=== PATIENT | female | born 1990 | race Caucasian/White ===

== ENCOUNTER 2016-08-11 11:37 | Emergency (ER) | payer OTHER ==
[2016-08-11 11:44] VITALS: BP 111/79; BMI 34.9
[2016-08-11] MEDS ORDERED: NS 1000 ML 1,000 ML IV ONE (12:07)
--- NOTE | 2016-08-11 12:09 | DR.GENAD ---
HPI - PCP Primary Care Physician: isabel - HPI Comment HPI Comment: PATIENT HAVE LOW BACK PAIN. NO DYSURIA. HAVING N/V/D FOR 2 DAYS. NO VAGINAL BLEEDING. HAVE NAUSEA MED SHE TAKES. DID NOT VOMIT TODAY BUT NAUSEATED. DIARRHEA IMPROVED. - Complaint/Symptoms Chief Complaint Doctors Comments: LOW BACK PAIN, N/V.D FOR 2 DAYS. PATIENT IS 25 WEEKS . Chief Complaint:: lower back pain,cramping, pt 25 weeks - Nurses notes reviewed Nurses Notes Review: Yes - Source History Provided: Patient - Mode of Arrival Mode of Arrival: Ambulatory - Timing Onset of Chief Complaint: 08/09/16 Came on: Suddenly - Duration Duration: Intermittent Duration: Days - Severity Severity: Moderate PMH - PMH Past Medical History: Yes Past Medical History: Anxiety Past Medical History Comment: bipolar, insomnia Past Surgical History: Yes Surgical History: Tonsillectomy - Family History History of Family Medical Conditions: No Family Medical History: Diabetes Mellitus, Cancer, Hypertension - Social History Alcohol Use: None Do you use any recreational Drugs:: No Lives With: Spouse Lives Where: Home - infectious screening Have you traveled outside the country in the last 6 months?: No Isolation: Standard ROS - Review of Systems Constitutional: No Symptoms Reported Eyes: No Symptoms Reported ENTM: No Symptoms Reported Respiratoy: No Symptoms Reported Cardiovascular: No Symptoms Reported Gastrointestinal/Abdominal: Abdominal Pain, Nausea, Vomiting Genitourinary: No Symptoms Reported. negative: Dysuria, Frequency, Hematuria Neurological: No Symptoms Reported Musculoskeletal: Back Pain Integumentary: Dryness Hematologic/Lymphatic: No Symptoms Reported Endocrine: No Symptoms Reported. negative: Flushing, Increased Thirst, Increased Urine All Other Systems: Reviewed and Negative PE - Vital Signs Vitals: Temperature 98.2 F Pulse Rate 88 Respiratory Rate 20 Blood Pressure 111/79 O2 Sat by Pulse Oximetry 99 - General Limitations: No Limitations General Appearance: Alert - Head Head Exam: Normal Inspection - Eyes Eye exam: Normal Appearance - ENT ENT Exam: Normal External Ear Exam External Ear Exam: Normal External Inspection TM/Canal Exam: Bilateral Normal Nose Exam: Normal Nose Exam Mouth Exam: Normal Inspection Throat Exam: Normal Inspection - Neck Neck Exam: Trachea Midline - Chest Chest Inspection: Symmetric Chest Wall Rise - Respiratory Respiratory Exam: Normal Lung Sounds Bilat Respiratory Exam: Bilateral Clear to Auscultation - Cardiovascular Cardiovascular Exam: Regular Rate, Normal Rhythm, Normal Heart Sounds - Abdominal Exam Abdominal Exam: Soft, Tenderness - Extremities Extremities Exam: Normal Inspection. negative: Edema - Back Back Exam: Normal Inspection - Neurologic Neurological Exam: Alert, Oriented X3, CN II-XII Intact - Psychiatric Psychiatric Exam: Anxious - Skin Skin Exam: Dry MDM - Differential Diagnosis Differential Diagnosis: GASTROENTERITIS, UTI, ABDOMINAL PAIN DURING , HYPEREMESIS, BACK PA Course - Treatment Treatment: SEE ORDERS. - Education/Counseling Education/Counseling: Patient, Education Educated On: Treatment, Diagnosis, Needs for Follow Up ROR - Labs Reviewed Laboratory Results Reviewed?: Yes Result Diagrams: 08/11/16 12:12 08/11/16 12:12 Laboratory: WBC 9.4 X10^3/uL (3.6-10.0) 08/11/16 12:12 RBC 4.15 X10^6/uL (3.5-5.4) 08/11/16 12:12 Hgb 11.8 g/dL (12.0-16.0) L 08/11/16 12:12 Hct 34.4 % (36.0-47.0) L 08/11/16 12:12 MCV 82.9 fL (80.0-100.0) 08/11/16 12:12 MCH 28.4 pg (27.0-34.0) 08/11/16 12:12 MCHC 34.2 g/dL (33.0-35.0) 08/11/16 12:12 RDW 12.6 % (11.6-16.5) 08/11/16 12:12 Plt Count 201 X10^3/uL (150.0-450.0) 08/11/16 12:12 MPV 8.8 fL (7.4-11.0) 08/11/16 12:12 Neut % 76.1 % (42.0-75.0) H 08/11/16 12:12 Lymph % 16.7 % (21.0-51.0) L 08/11/16 12:12 [place] % 6.3 % (0.0-13.0) 08/11/16 12:12 Eos % 0.5 % (0.9-2.9) L 08/11/16 12:12 Baso % 0.4 % (0.2-1.0) 08/11/16 12:12 Neut # 7.2 x10^3/uL (2.2-4.8) H 08/11/16 12:12 Lymph # 1.6 X10^3/uL (1.3-2.9) 08/11/16 12:12 [place] # 0.6 x10^3/uL (0.3-0.8) 08/11/16 12:12 Eos # 0.0 x10^3/uL (0.0-0.2) 08/11/16 12:12 Baso # 0.0 X10^3/uL (0.0-0.1) 08/11/16 12:12 Absolute Nucleated RBC 0.0 /100WBC 08/11/16 12:12 Sodium 140 mmol/L (136-145) 08/11/16 12:12 Corrected Sodium TNP 08/11/16 12:12 Potassium 3.6 mmol/L (3.5-5.1) 08/11/16 12:12 Chloride 105 mmol/L (98-107) 08/11/16 12:12 Carbon Dioxide 24.8 mmol/L (21-32) 08/11/16 12:12 BUN 6 mg/dL (7-18) L 08/11/16 12:12 Creatinine 0.46 mg/dL (0.55-1.02) L 08/11/16 12:12 Est GFR (MDRD) Af Amer > 60 (>60) 08/11/16 12:12 Est GFR (MDRD) Non-Af > 60 (>60) 08/11/16 12:12 Glucose 108 mg/dL (65-99) H 08/11/16 12:12 Calcium 8.4 mg/dL (8.5-10.1) L 08/11/16 12:12 Corrected Calcium 9.4 mg/dL (8.5-10.1) 08/11/16 12:12 Total Bilirubin 0.40 mg/dL (0.2-1.0) 08/11/16 12:12 AST 11 Units/L (15-37) L 08/11/16 12:12 ALT 15 Units/L (12-78) 08/11/16 12:12 Alkaline Phosphatase 57 Units/L (46-116) 08/11/16 12:12 Total Protein 6.6 g/dL (6.4-8.2) 08/11/16 12:12 Albumin 2.8 g/dL (3.4-5.0) L 08/11/16 12:12 Globulin 3.8 g/dL (2.5-4.5) 08/11/16 12:12 Albumin/Globulin Ratio 0.7 Ratio (1.1-2.1) L 08/11/16 12:12 Specimen Type Clean catch urine 08/11/16 12:51 Urine Color Yellow (YELLOW) 08/11/16 12:51 Urine Appearance Hazy (CLEAR) 08/11/16 12:51 Urine pH 8.0 (5.0 - 8.0) 08/11/16 12:51 Ur Specific [place] 1.020 (1.000-1.030) 08/11/16 12:51 Urine Protein Negative (NEGATIVE) 08/11/16 12:51 Urine Glucose (UA) Negative (NEGATIVE) 08/11/16 12:51 Urine Ketones Negative (NEGATIVE) 08/11/16 12:51 Urine Occult Blood Negative (NEGATIVE) 08/11/16 12:51 Urine Nitrite Negative (NEGATIVE) 08/11/16 12:51 Urine Bilirubin Negative (NEGATIVE) 08/11/16 12:51 Urine Urobilinogen Normal (NORMAL) 08/11/16 12:51 Ur Leukocyte Esterase Negative (NEGATIVE) 08/11/16 12:51 Urine RBC Negative /HPF (NEGATIVE) 08/11/16 12:51 Urine WBC Rare /HPF (NEGATIVE) 08/11/16 12:51 Ur Squamous Epith Cells Few /HPF (NEGATIVE) 08/11/16 12:51 Urine Bacteria Trace /HPF (NEGATIVE) 08/11/16 12:51 Ur Culture Indicated? No/not indicated 08/11/16 12:51 - Diagnosis Discharge Problem: Hyperemesis, Gastroenteritis - Discharge Plan Disposition: 01 HOME, SELF-CARE Condition: Stable - Follow ups/Referrals Follow ups/Referrals: EVITA ASTORGA [Primary Care Provider] - 3 days - Instructions Instructions: Hyperemesis Gravidarum, Viral Gastroenteritis, Adult, Easy-to- Read Additional Instructions: RETURN TO ED IF WORSE. CONTINUE WITH NAUSEA MED YOU HAVE AT HOME NEEDED
[2016-08-11] MEDS ORDERED: NS 1000 ML 1,000 ML ONE (12:23)
[2016-08-11 12:30] LABS: BASOPHILS % (AUTO) 0.4 % (0.2-1.0); EOSINOPHILS % (AUTO) 0.5 % (0.9-2.9); HEMATOCRIT 34.4 % (36.0-47.0); HEMOGLOBIN 11.8 g/dL (12.0-16.0); LYMPHOCYTES # (AUTO) 1.6 X10^3/uL (1.3-2.9); LYMPHOCYTES % (AUTO) 16.7 % (21.0-51.0); MEAN CORPUSCULAR HEMOGLOBIN 28.4 pg (27.0-34.0); MEAN CORPUSCULAR HGB CONC 34.2 g/dL (33.0-35.0); MEAN CORPUSCULAR VOLUME 82.9 fL (80.0-100.0); MEAN PLATELET VOLUME 8.8 fL (7.4-11.0); MONOCYTES # (AUTO) 0.6 x10^3/uL (0.3-0.8); MONOCYTES % (AUTO) 6.3 % (0.0-13.0); NEUTROPHILS # (AUTO) 7.2 x10^3/uL (2.2-4.8); NEUTROPHILS % (AUTO) 76.1 % (42.0-75.0); PLATELET COUNT 201 X10^3/uL (150.0-450.0); RED BLOOD COUNT 4.15 X10^6/uL (3.5-5.4); RED CELL DISTRIBUTION WIDTH 12.6 % (11.6-16.5); WHITE BLOOD COUNT 9.4 X10^3/uL (3.6-10.0)
[2016-08-11 12:34] LABS: ALANINE AMINOTRANSFERASE 15 Units/L (12-78); ALBUMIN 2.8 g/dL (3.4-5.0); ALKALINE PHOSPHATASE 57 Units/L (46-116); ASPARTATE AMINO TRANSFERASE 11 Units/L (15-37); BLOOD UREA NITROGEN 6 mg/dL (7-18); CALCIUM 8.4 mg/dL (8.5-10.1); CARBON DIOXIDE 24.8 mmol/L (21-32); CHLORIDE 105 mmol/L (98-107); COR CA(FOR HYPOALB) 9.4 mg/dL (8.5-10.1); CREATININE 0.46 mg/dL (0.55-1.02); GLUCOSE 108 mg/dL (65-99); SODIUM 140 mmol/L (136-145); TOTAL PROTEIN 6.6 g/dL (6.4-8.2); eGFR BLACK RACES > 60 (>60); eGFR NON BLACK RACES > 60 (>60)
[2016-08-11 13:12] LABS: BILIRUBIN,URINE NEGATIVE (NEGATIVE); BLOOD/HEMOGLOBIN,URINE NEGATIVE (NEGATIVE); GLUCOSE, URINE NEGATIVE (NEGATIVE); KETONES,URINE NEGATIVE (NEGATIVE); LEUKOCYTE ESTERASE ,URINE NEGATIVE (NEGATIVE); NITRITES,URINE NEGATIVE (NEGATIVE); PROTEIN,URINE NEGATIVE (NEGATIVE); UROBILINOGEN,URINE NORMAL (NORMAL)
[2016-08-11 13:16] LABS: APPEARANCE,URINE HAZY (CLEAR); COLOR,URINE YELLOW (YELLOW)
[2016-08-11 13:22] LABS: BACTERIA,URINE TRACE /HPF (NEGATIVE); RBC,URINE NEGATIVE /HPF (NEGATIVE); SQUAMOUS EPITHELIAL CELL,UR FEW /HPF (NEGATIVE)
== END 2016-08-11 13:42 | disposition home or self-care (01) ==
LOC: ER 11:54
DX: K52.89 Other specified noninfective gastroenteritis and colitis (principal); R11.10 Vomiting, unspecified; Z3A.25 25 weeks gestation of pregnancy
CPT/HCPCS: 36415; 80053; 81001; 85025; 96365; 99283; 99284; A4222

== ENCOUNTER 2016-08-14 12:54 | Emergency (ER) | payer OTHER ==
[2016-08-14 13:01] VITALS: BP 126/70; BMI 35.5
[2016-08-14 13:31] LABS: BILIRUBIN,URINE NEGATIVE (NEGATIVE); BLOOD/HEMOGLOBIN,URINE NEGATIVE (NEGATIVE); GLUCOSE, URINE NEGATIVE (NEGATIVE); KETONES,URINE NEGATIVE (NEGATIVE); LEUKOCYTE ESTERASE ,URINE NEGATIVE (NEGATIVE); NITRITES,URINE NEGATIVE (NEGATIVE); PROTEIN,URINE NEGATIVE (NEGATIVE); UROBILINOGEN,URINE NORMAL (NORMAL)
[2016-08-14 13:44] LABS: APPEARANCE,URINE CLEAR (CLEAR); BACTERIA,URINE NEGATIVE /HPF (NEGATIVE); COLOR,URINE PALE YELLOW (YELLOW); RBC,URINE NONE SEEN /HPF (NEGATIVE); SQUAMOUS EPITHELIAL CELL,UR RARE /HPF (NEGATIVE)
--- NOTE | 2016-08-14 13:47 | DR.GENAD ---
HPI - PCP Primary Care Physician: MANJULA - Complaint/Symptoms Chief Complaint Doctors Comments: Patient states that she saw her OB today and presented with nausea,vomitng and abdominal crapmping. She denies fever or diarrhea. She is reported to be twenty six weeks gestation. monitoring rate 140-147 Chief Complaint:: CONTRACTIONS CRAMPS - Source History Provided: Patient - Mode of Arrival Mode of Arrival: Ambulatory - Timing Onset of Chief Complaint: 08/14/16 PMH - PMH Past Medical History: Yes Past Medical History: Anxiety, Depression Past Medical History Comment: BIPOLAR, INSOMINA Past Surgical History: Yes Surgical History: Tonsillectomy - Family History History of Family Medical Conditions: Yes Family Medical History: Diabetes Mellitus, Cancer, Coronary Artery Disease, Hypertension - Social History Does any household member use tobacco: No Alcohol Use: None Do you use any recreational Drugs:: No Lives With: Family Lives Where: Home - infectious screening In the last 2 months have you had wt loss of >10#?: NO Have you had fever, night sweats or hemotysis?: No Have you traveled outside the country in the last 6 months?: No Isolation: Standard ROS - Review of Systems Constitutional: No Symptoms Reported Eyes: No Symptoms Reported ENTM: No Symptoms Reported Respiratoy: No Symptoms Reported Cardiovascular: No Symptoms Reported Gastrointestinal/Abdominal: No Symptoms Reported Genitourinary: No Symptoms Reported Neurological: No Symptoms Reported Musculoskeletal: No Symptoms Reported Integumentary: No Symptoms Reported Hematologic/Lymphatic: No Symptoms Reported Endocrine: No Symptoms Reported Psychiatric: No Symptoms Reported All Other Systems: Reviewed and Negative PE - Vital Signs Vitals: Temperature 98.0 F Pulse Rate 16 Respiratory Rate 16 Blood Pressure 126/70 O2 Sat by Pulse Oximetry 99 - General Limitations: No Limitations General Appearance: Alert, In No Apparent Distress - Head Head Exam: Normal Inspection, Atraumatic - Eyes Eye exam: Normal Appearance, PERRL, EOMI - ENT ENT Exam: Normal Exam External Ear Exam: Normal External Inspection TM/Canal Exam: Bilateral Normal Nose Exam: Normal Nose Exam, Sinus Tenderness Mouth Exam: Normal Inspection Throat Exam: Normal Inspection - Neck Neck Exam: Normal Inspection - Chest Chest Inspection: Normal Inspection - Respiratory Respiratory Exam: Normal Lung Sounds Bilat Respiratory Exam: Bilateral Clear to Auscultation - Cardiovascular Cardiovascular Exam: Regular Rate, Normal Rhythm - Abdominal Exam Abdominal Exam: Normal Inspection, Normal Bowel Sounds Abdominal Tenderness: negative: RUQ, RLQ, LUQ, LLQ, Epigastrium, Suprapubic, Diffuse, Mild, Moderate, Severe, Other - Extremities Extremities Exam: Normal Inspection, Full ROM - Back Back Exam: Normal Inspection - Neurologic Neurological Exam: Alert, Oriented X3 - Psychiatric Psychiatric Exam: Normal Affect - Skin Skin Exam: Warm, Dry, Intact ROR - XRAY XRAY Interpreted by: Radiologist (Humerus/ No fracture, CT Brain: no acute process) - Diagnosis Discharge Problem: Accidental fall Qualifiers: Encounter type: initial encounter Qualified Code(s): W19.XXXA - Unspecified fall, initial encounter Contusion of shoulder, left Qualifiers: Encounter type: initial encounter Qualified Code(s): S40.012A - Contusion of left shoulder, initial encounter - Discharge Plan Condition: Stable - Follow ups/Referrals Follow ups/Referrals: EVITA ASTORGA [Primary Care Provider] - 3 days - Instructions
== END 2016-08-14 14:39 | disposition home or self-care (01) ==
LOC: ER 13:11
DX: S40.012A Contusion of left shoulder, initial encounter (principal); Z3A.26 26 weeks gestation of pregnancy; W19.XXXA Unspecified fall, initial encounter
CPT/HCPCS: 81001; 99283; 99284

== ENCOUNTER 2016-10-27 12:32 | Emergency (ER) | payer OTHER ==
[2016-10-27 12:36] VITALS: BP 115/69; BMI 36.6
[2016-10-27 13:31] LABS: BILIRUBIN,URINE NEGATIVE (NEGATIVE); BLOOD/HEMOGLOBIN,URINE NEGATIVE (NEGATIVE); GLUCOSE, URINE NEGATIVE (NEGATIVE); KETONES,URINE 2+ (NEGATIVE); LEUKOCYTE ESTERASE ,URINE NEGATIVE (NEGATIVE); NITRITES,URINE NEGATIVE (NEGATIVE); PROTEIN,URINE NEGATIVE (NEGATIVE); UROBILINOGEN,URINE NORMAL (NORMAL)
[2016-10-27 13:39] LABS: APPEARANCE,URINE CLEAR (CLEAR); BACTERIA,URINE TRACE /HPF (NEGATIVE); COLOR,URINE YELLOW (YELLOW); RBC,URINE NONE SEEN /HPF (NEGATIVE); SQUAMOUS EPITHELIAL CELL,UR FEW /HPF (NEGATIVE)
[2016-10-27 13:43] LABS: AMNISURE ROM TEST NO MEMBRANES RUPTURE (NO RUPTURE)
--- NOTE | 2016-10-27 20:43 | DR.PREG ---
HPI - PCP Primary Care Physician: GAURI - Chief Complaint Chief Complaint:: PT C/O CRAMPING AND PRESSURE THAT STARTED CONSTANTLY AROUND 2 AM THIS AM. PT STATES ABOUT A HOUR AGO SHE STARTED TO HAVE LOWER BACK PAIN. LMP: 01/2016 LIZ: 11/21/16 - Source History Provided: Patient - Mode of Arrival Mode of Arrival: Ambulatory - Context : 1 Para: 0 - Timing Onset of Chief Complaint: 10/27/16 Pain: Regular - Duration Pain Strength: Moderate PMH - PMH Past Medical History: Yes Past Medical History: Anxiety, Depression Past Medical History Comment: BIPOLAR, INSOMNIA Past Surgical History: Yes Surgical History: Tonsillectomy - Family History History of Family Medical Conditions: Yes Family Medical History: Diabetes Mellitus, Cancer, Coronary Artery Disease, Hypertension - Social History Does any household member use tobacco: No Alcohol Use: None Do you use any recreational Drugs:: No Lives With: Family Lives Where: Home - infectious screening In the last 2 months have you had wt loss of >10#?: NO Have you had fever, night sweats or hemotysis?: No Have you traveled outside the country in the last 6 months?: No Isolation: Standard PE - Vital Signs Vitals: Temperature 97.9 F Pulse Rate 95 Respiratory Rate 20 Blood Pressure 115/69 O2 Sat by Pulse Oximetry 98 ROR - Labs Reviewed Laboratory: Specimen Type Clean catch urine 10/27/16 13:21 Urine Color Yellow (YELLOW) 10/27/16 13:21 Urine Appearance Clear (CLEAR) 10/27/16 13:21 Urine pH 8.0 (5.0 - 8.0) 10/27/16 13:21 Ur Specific [place] 1.010 (1.000-1.030) 10/27/16 13:21 Urine Protein Negative (NEGATIVE) 10/27/16 13:21 Urine Glucose (UA) Negative (NEGATIVE) 10/27/16 13:21 Urine Ketones 2+ (NEGATIVE) 10/27/16 13:21 Urine Occult Blood Negative (NEGATIVE) 10/27/16 13:21 Urine Nitrite Negative (NEGATIVE) 10/27/16 13:21 Urine Bilirubin Negative (NEGATIVE) 10/27/16 13:21 Urine Urobilinogen Normal (NORMAL) 10/27/16 13:21 Ur Leukocyte Esterase Negative (NEGATIVE) 10/27/16 13:21 Urine RBC None seen /HPF (NEGATIVE) 10/27/16 13:21 Urine WBC 1-2 /HPF (NEGATIVE) 10/27/16 13:21 Ur Squamous Epith Cells Few /HPF (NEGATIVE) 10/27/16 13:21 Urine Bacteria Trace /HPF (NEGATIVE) 10/27/16 13:21 Ur Culture Indicated? No/not indicated 10/27/16 13:21 Placental [id number] No membranes rupture (NO RUPTURE) 10/27/16 13:21 - Discharge Plan Disposition: 01 HOME, SELF-CARE Condition: Stable - Follow ups/Referrals Follow ups/Referrals: EVITA ASTORGA [Primary Care Provider] - 3 days - Instructions Instructions: [place] Contractions, Third Trimester of , Easy-to -Read Additional Instructions: RETURN TO ER IF CONTRACTIONS BECOME MORE FREQUENT OR INTENSE. INCREASE WATER INTAKE. FOLLOW UP WITH DR. ASTORGA AT REGULAR FOLLOW UP APPOINTMENT.
== END 2016-10-27 14:33 | disposition home or self-care (01) ==
LOC: ER 12:59
DX: O47.03 False labor before 37 completed weeks of gestation, third trimester (principal)
CPT/HCPCS: 81001; 84112; 99284

== ENCOUNTER 2016-10-29 16:02 | Emergency (ER) | payer OTHER ==
[2016-10-29 16:07] VITALS: BP 114/85; BMI 35.9
[2016-10-29 16:49] LABS: BILIRUBIN,URINE NEGATIVE (NEGATIVE); BLOOD/HEMOGLOBIN,URINE NEGATIVE (NEGATIVE); GLUCOSE, URINE NEGATIVE (NEGATIVE); KETONES,URINE 2+ (NEGATIVE); LEUKOCYTE ESTERASE ,URINE 1+ (NEGATIVE); NITRITES,URINE NEGATIVE (NEGATIVE); PROTEIN,URINE NEGATIVE (NEGATIVE); UROBILINOGEN,URINE NORMAL (NORMAL)
[2016-10-29 16:54] LABS: APPEARANCE,URINE CLEAR (CLEAR); COLOR,URINE YELLOW (YELLOW)
[2016-10-29 17:10] LABS: AMORPHOUS SEDIMENT,UR TRACE /HPF (NEGATIVE); BACTERIA,URINE TRACE /HPF (NEGATIVE); MUCUS,URINE MODERATE /HPF (NEGATIVE); RBC,URINE RARE /HPF (NEGATIVE); SQUAMOUS EPITHELIAL CELL,UR FEW /HPF (NEGATIVE)
--- NOTE | 2016-10-30 07:38 | DR.PREG ---
HPI - PCP Primary Care Physician: GAURI - Chief Complaint Chief Complaint:: 37 WEEK OB PT. C/O CONTRACTIONS EVERY 6 MINUTES. PAIN ORGINALLY STARTED ON SUNDAY BUT HAS WORSENED OVER THE WEEKEND. PT. C/O LOWER BACK AND SUPRAPUBIC PAIN AND PRESSURE. PT. DENIES VAGINAL FLUID LEAKAGE OR BLEEDING. - Source History Provided: Patient - Mode of Arrival Mode of Arrival: Ambulatory - Context : 1 Para: 0 - Timing Onset of Chief Complaint: 10/27/16 Pain: Regular - Duration Pain Strength: Strong PMH - PMH Past Medical History: Yes Past Medical History: Anxiety, Depression Past Medical History Comment: BIPOLAR, INSOMNIA Past Surgical History: Yes Surgical History: Tonsillectomy - Family History History of Family Medical Conditions: Yes Family Medical History: Diabetes Mellitus, Cancer, Coronary Artery Disease, Hypertension - Social History Does patient currently use any type of tobacco product: No Have you used tobacco products in the last 12 months: No Type of Tobacco Use: None Does any household member use tobacco: No Alcohol Use: None Do you use any recreational Drugs:: No Lives With: Spouse Lives Where: Home - infectious screening In the last 2 months have you had wt loss of >10#?: NO Have you had fever, night sweats or hemotysis?: No Have you traveled outside the country in the last 6 months?: No Isolation: Standard PE - Vital Signs Vitals: Temperature 97.9 F Pulse Rate 103 Respiratory Rate 20 Blood Pressure 114/85 O2 Sat by Pulse Oximetry 100 ROR - Labs Reviewed Laboratory: Specimen Type Clean catch urine 10/29/16 16:09 Urine Color Yellow (YELLOW) 10/29/16 16:09 Urine Appearance Clear (CLEAR) 10/29/16 16:09 Urine pH 8.0 (5.0 - 8.0) 10/29/16 16:09 Ur Specific [place] 1.010 (1.000-1.030) 10/29/16 16:09 Urine Protein Negative (NEGATIVE) 10/29/16 16:09 Urine Glucose (UA) Negative (NEGATIVE) 10/29/16 16:09 Urine Ketones 2+ (NEGATIVE) 10/29/16 16:09 Urine Occult Blood Negative (NEGATIVE) 10/29/16 16:09 Urine Nitrite Negative (NEGATIVE) 10/29/16 16:09 Urine Bilirubin Negative (NEGATIVE) 10/29/16 16:09 Urine Urobilinogen Normal (NORMAL) 10/29/16 16:09 Ur Leukocyte Esterase 1+ (NEGATIVE) 10/29/16 16:09 Urine RBC Rare /HPF (NEGATIVE) 10/29/16 16:09 Urine WBC 01 - 04 /HPF (NEGATIVE) 10/29/16 16:09 Ur Squamous Epith Cells Few /HPF (NEGATIVE) 10/29/16 16:09 Amorphous Sediment Trace /HPF (NEGATIVE) 10/29/16 16:09 Urine Bacteria Trace /HPF (NEGATIVE) 10/29/16 16:09 Urine Mucus Moderate /HPF (NEGATIVE) 10/29/16 16:09 Ur Culture Indicated? No/not indicated 10/29/16 16:09 - Discharge Plan Disposition: 01 HOME, SELF-CARE Condition: Stable - Follow ups/Referrals Follow ups/Referrals: EVITA ASTORGA [Primary Care Provider] - 3 days - Instructions Instructions: Third Trimester of , [id number] Additional Instructions: Return to ER with bright red vaginal bleeding, increase in pain, spontaneous rupture of membranes, decrease in movement.
== END 2016-10-29 17:15 | disposition home or self-care (01) ==
LOC: ER 16:17
DX: O47.03 False labor before 37 completed weeks of gestation, third trimester (principal)
CPT/HCPCS: 81001; 99284

== ENCOUNTER → 2016-11-02 | Outpatient (CLI) | payer OTHER ==
[2016-10-29 16:07] VITALS: BP 114/85
[2016-11-02 11:20] LABS: BILIRUBIN,URINE NEGATIVE (NEGATIVE); BLOOD/HEMOGLOBIN,URINE NEGATIVE (NEGATIVE); GLUCOSE, URINE NEGATIVE (NEGATIVE); KETONES,URINE 1+ (NEGATIVE); LEUKOCYTE ESTERASE ,URINE NEGATIVE (NEGATIVE); NITRITES,URINE NEGATIVE (NEGATIVE); PROTEIN,URINE 1+ (NEGATIVE); UROBILINOGEN,URINE NORMAL (NORMAL)
[2016-11-02 11:20] LABS: BASOPHILS % (AUTO) 0.3 % (0.2-1.0); EOSINOPHILS % (AUTO) 0.5 % (0.9-2.9); HEMATOCRIT 29.2 % (36.0-47.0); HEMOGLOBIN 9.9 g/dL (12.0-16.0); LYMPHOCYTES # (AUTO) 1.2 X10^3/uL (1.3-2.9); LYMPHOCYTES % (AUTO) 16.1 % (21.0-51.0); MEAN CORPUSCULAR HEMOGLOBIN 24.7 pg (27.0-34.0); MEAN CORPUSCULAR VOLUME 72.4 fL (80.0-100.0); MEAN PLATELET VOLUME 8.7 fL (7.4-11.0); MONOCYTES # (AUTO) 0.7 x10^3/uL (0.3-0.8); MONOCYTES % (AUTO) 9.6 % (0.0-13.0); NEUTROPHILS # (AUTO) 5.5 x10^3/uL (2.2-4.8); NEUTROPHILS % (AUTO) 73.5 % (42.0-75.0); PLATELET COUNT 182 X10^3/uL (150.0-450.0); RED BLOOD COUNT 4.03 X10^6/uL (3.5-5.4); RED CELL DISTRIBUTION WIDTH 14.9 % (11.6-16.5); WHITE BLOOD COUNT 7.4 X10^3/uL (3.6-10.0)
[2016-11-02 11:24] LABS: BLOOD UREA NITROGEN 4 mg/dL (7-18); CALCIUM 8.4 mg/dL (8.5-10.1); CHLORIDE 106 mmol/L (98-107); CREATININE 0.43 mg/dL (0.55-1.02); GLUCOSE 91 mg/dL (65-99); SODIUM 141 mmol/L (136-145); eGFR BLACK RACES > 60 (>60); eGFR NON BLACK RACES > 60 (>60)
[2016-11-02 11:44] LABS: AMORPHOUS SEDIMENT,UR 1+ /HPF (NEGATIVE); APPEARANCE,URINE SLIGHTLY HAZY (CLEAR); BACTERIA,URINE TRACE /HPF (NEGATIVE); COLOR,URINE YELLOW (YELLOW); RBC,URINE 0 /HPF (NEGATIVE); SQUAMOUS EPITHELIAL CELL,UR FEW /HPF (NEGATIVE)
[2016-11-02 11:46] LABS: HYPOCHROMASIA 1+; MICROCYTOSIS 1+; PLATELET MORPHOLOGY COMMENT NORMAL (NORMAL)
== END ==
LOC: LAB 10:44
PROVIDERS: ATTEND Specialist
DX: Z01.818 Encounter for other preprocedural examination (principal); Z34.83 Encounter for supervision of other normal pregnancy, third trimester
CPT/HCPCS: 36415; 80048; 81001; 85025; 86592; 86850; 86900; 86901

== ENCOUNTER 2016-11-08 06:31 | Inpatient (IN) | payer OTHER ==
[~2016-11-08 06:31] MED LIST: D5 1/2 NS 1000 ML 1,000 ML IV ONE; D5 1/2 NS 1000ML W PITOCIN 20 U/L 1,000 ML IV ONE; D5LR 1000ML W PITOCIN 10 U/L 1,000 ML IV ONE; LR 1000 ML IV 1,000 ML IV ONE; PITOCIN ONE
[2016-11-08] MEDS ORDERED: MORPHINE SULFATE INJ 2 MG IVP PRN (06:57)
[2016-11-08] MEDS ORDERED: REGLAN INJ 10 MG VIAL IVP PRN ×3 (06:57→17:59)
[2016-11-08] MEDS ORDERED: PITOCIN 10 UNITS in D5 LR 1000 ML 1,000 ML IV PRN (06:57)
[2016-11-08] MEDS ORDERED: PHENERGAN INJ 25 MG IV PRN (06:57)
[2016-11-08] MEDS ORDERED: PITOCIN IVP ONE (06:57)
[2016-11-08] MEDS: D5 1/2 NS 1000 ML 1,000 ML IV SCH ×2 (06:58→18:02)
--- NOTE | 2016-11-08 07:06 | DR.OB ---
OB Quick Note - Assessment/Plan Assessment/Plan: L&D 11/08/16 at 7:00am S-No complaint. O-Afebrile,VSS OEC=849 with good LTV, +accel, no decel. CTX=none CVX=1cm/50%/-1/VTX AROM with clear fluid. IUPC and FSE placed. A-IUP at 38 1/7 weeks for induction Polyhydramnios Rh- Bipolar d/o P-Begin pitocin induction Anticipate
[2016-11-08] MEDS ORDERED: NUBAIN INJ 10 ONE ×2 (08:10→11:14)
[2016-11-08] MEDS: NUBAIN INJ 200 MG VIAL MULTIDOSE IVP PRN ×2 (08:10→11:15)
[2016-11-08] MEDS ORDERED: ZOFRAN INJ 4 MG VIAL ONE (09:51)
[2016-11-08] MEDS ORDERED: DIPRIVAN VIAL ONE (09:51)
[2016-11-08] MEDS ORDERED: VERSED ONE (09:51)
[2016-11-08] MEDS ORDERED: PITOCIN ONE (09:51)
[2016-11-08] MEDS ORDERED: XYLOCAINE 2 % (PLAIN) ONE (09:51)
--- NOTE | 2016-11-08 11:48 | DR.OB ---
OB Quick Note - Assessment/Plan Assessment/Plan: L&D 11/08/16 at 11:45pm Pitocin=16mu/min. S-No complaint except CTX. O-Afebrile, VSS HHP=579 with good LTV, +accel, no decel. CTX=q 1 1/2-2 min., about 35-55mmHg CVX=3cm/75%/-1 A-IUP at 38 1/7 weeks for induction Polyhydramnios Rh- Bipolar d/o P-Cont. pitocin induction Anticipate
[2016-11-08] MEDS ORDERED: FENTANYL INJ 100 mcg ONE (12:44)
[2016-11-08] MEDS ORDERED: NAROPIN EPIDURAL 0.2% + FENTANYL 90MCG 60 ML EPI ONE (12:44)
[2016-11-08] MEDS ORDERED: XYLOCAINE 1 % (PLAIN) ONE (12:58)
[2016-11-08] MEDS ORDERED: NAROPIN EPIDURAL 0.2% 97 ML with FENTANYL INJ 250 mcg 150 MCG EPI PRN ×2 (14:45)
[2016-11-08] MEDS ORDERED: LR 1000 ML IV 1,000 ML IV ONE ×2 (14:45→16:32)
[2016-11-08] MEDS ORDERED: ANCEF VIAL 1 GM ONE ×2 (16:25→17:07)
[2016-11-08] MEDS ORDERED: NS 50 ML IV + SPIKE MINIBAG* 50 ML IV ONE (16:25)
[2016-11-08] MEDS ORDERED: XYLOCAINE 2% and EPINEPHRINE 1:100,000 ONE (16:33)
[2016-11-08] MEDS ORDERED: DURAMORPH ONE (16:33)
[2016-11-08] MEDS ORDERED: D5 1/2 NS 1000ML W PITOCIN 20 U/L 1,000 ML IV ONE (16:33)
--- NOTE | 2016-11-08 16:38 | DR.OB ---
OB Quick Note - Assessment/Plan Assessment/Plan: L&D 11/08/16 at 4:20pm Pitocin=20mu/min. S-No complaint. O-Afebrile,VSS SQR=072 with good LTV, +accel, no decel CTX=q 1 1/2 to 3 min., about 35-55mmHg CVX=4cm/75%/-1/caput (no change in 2-3hours) A-IUP at 38 1/7 weeks with failure to dilate P-To C/S
[2016-11-08] MEDS ORDERED: NS 100 ML IV 100 ML IV ONE (17:07)
[2016-11-08] MEDS ORDERED: NS IRRIGATION 1000 ML 1,000 ML IR ONE (17:09)
[2016-11-08] MEDS ORDERED: BENADRYL INJ 50 MG VIAL IVP PRN ×2 (17:54→17:59)
[2016-11-08] MEDS ORDERED: PHENERGAN INJ 25 MG IVP PRN (17:54)
[2016-11-08] MEDS ORDERED: ZOFRAN INJ 4 MG VIAL IVP PRN ×2 (17:54→17:59)
[2016-11-08] MEDS ORDERED: ADACEL TDaP IM ONE ×2 (17:59→23:00)
[2016-11-08] MEDS ORDERED: MYLICON TAB 80 MG CHEW PO PRN (17:59)
[2016-11-08] MEDS ORDERED: NARCAN INJ IVP PRN (17:59)
[2016-11-08] MEDS ORDERED: PERCOCET TAB 5/325 MG PO PRN (17:59)
[2016-11-08] MEDS ORDERED: HYPERRHO S/D (or RHOGAM) IM PRN (17:59)
[2016-11-08] MEDS ORDERED: D5 1/2 NS 1000 ML 1,000 ML with PITOCIN 20 UNITS IV SCH ×2 (18:00)
[2016-11-08] MEDS: TORADOL 30 MG VIAL IVP PRN (19:12)
[2016-11-08] MEDS: ZANTAC PO SCH (20:11)
[2016-11-09] MEDS ORDERED: BENADRYL INJ 50 MG VIAL IV ONE (04:20)
[2016-11-09] MEDS: TORADOL 30 MG VIAL IVP PRN (04:35)
[2016-11-09 05:49] LABS: HEMATOCRIT 23.9 % (36.0-47.0); HEMOGLOBIN 8.1 g/dL (12.0-16.0)
[2016-11-09] MEDS ORDERED: MOTRIN TAB 800 MG PO PRN (07:38)
[2016-11-09] MEDS: COLACE CAP 100 MG PO SCH ×2 (08:30→20:36)
[2016-11-09] MEDS: PRENATAL PLUS PO SCH (08:30)
[2016-11-09] MEDS: ZANTAC PO SCH ×2 (08:30→20:36)
[2016-11-09] MEDS: PERCOCET TAB 5/325 MG PO PRN ×2 (11:34→17:40)
[2016-11-09] MEDS: BACTROBAN OINT TOP SCH ×2 (13:31→22:16)
[2016-11-09] MEDS: FERROUS SULFATE PO SCH (17:20)
[2016-11-10] MEDS: PERCOCET TAB 5/325 MG PO PRN (00:21)
[2016-11-10] MEDS: FERROUS SULFATE PO SCH (06:09)
[2016-11-10] MEDS: BACTROBAN OINT TOP SCH (06:11)
[2016-11-10] MEDS: ZANTAC PO SCH (08:30)
[2016-11-10] MEDS: COLACE CAP 100 MG PO SCH (08:30)
[2016-11-10] MEDS: PRENATAL PLUS PO SCH (08:30)
[2016-11-10 11:24] VITALS: BP 131/84
== END 2016-11-10 11:15 | disposition home or self-care (01) | DRG 775 ==
LOC: LD 06:31 → MED/SURG 16:02
PROVIDERS: ADMIT Specialist; ATTEND Specialist
PROC: 10907ZC Drainage of Amniotic Fluid, Therapeutic from Products of Conception, Via Natural or Artificial Opening (ICD-10-PCS; 2016-11-08)
PROC: 3E033VJ Introduction of Other Hormone into Peripheral Vein, Percutaneous Approach (ICD-10-PCS; 2016-11-08)
PROC: 3E0234Z Introduction of Serum, Toxoid and Vaccine into Muscle, Percutaneous Approach (ICD-10-PCS; 2016-11-08)
PROC: 10D00Z1 Extraction of Products of Conception, Low, Open Approach (ICD-10-PCS; principal; 2016-11-08 16:30)
DX: O40.3XX0 Polyhydramnios, third trimester, not applicable or unspecified (principal); Z37.0 Single live birth; O36.0920 Maternal care for other rhesus isoimmunization, second trimester, not applicable or unspecified; O62.0 Primary inadequate contractions; F31.89 Other bipolar disorder; Z3A.38 38 weeks gestation of pregnancy
CPT/HCPCS: 36415; 85014; 85018; A4216; A4222; S0197; J0690; J1200; J1885; J2001; J2250; J2300; J2405; J2590; J2790; J3010; J3490; J7042; J7120

== ENCOUNTER 2016-11-13 20:18 | Emergency (ER) | payer OTHER ==
[2016-11-13 20:28] VITALS: BP 109/67; BMI 34.0
--- NOTE | 2016-11-14 04:21 | DR.GENAD ---
HPI - PCP Primary Care Physician: isabel - Complaint/Symptoms Chief Complaint:: pt states" i had a on sunday the now today i started vomiting. My mom thinks they may have nicked something in my spine when she put the epidural in" - Source History Provided: Patient - Mode of Arrival Mode of Arrival: Ambulatory - Timing Onset of Chief Complaint: 11/12/16 PMH - PMH Past Medical History: Yes Past Medical History: Anxiety, Depression Past Surgical History: Yes Surgical History: , Tonsillectomy - Family History History of Family Medical Conditions: Yes Family Medical History: Diabetes Mellitus, Cancer, Coronary Artery Disease, Hypertension - Social History Alcohol Use: None Do you use any recreational Drugs:: No Lives With: Family Lives Where: Home - infectious screening In the last 2 months have you had wt loss of >10#?: NO Have you had fever, night sweats or hemotysis?: No Have you traveled outside the country in the last 6 months?: No Isolation: Standard PE - Vital Signs Vitals: Temperature 98.3 F Pulse Rate 62 Respiratory Rate 18 Blood Pressure [Left Arm] 131/84 Blood Pressure 109/67 O2 Sat by Pulse Oximetry 99 - Discharge Plan Disposition: LWBS After Triage Condition: Stable - Follow ups/Referrals Follow ups/Referrals: NFD,None [Primary Care Provider] - 3 days - Instructions
== END 2016-11-13 20:59 | disposition left against medical advice (07) ==
LOC: ER 20:33
DX: R11.10 Vomiting, unspecified (principal)
CPT/HCPCS: 99281